=== PATIENT | male | born 1985 | race Caucasian/White ===

== ENCOUNTER 2020-10-05 08:00 | Outpatient (CLI) | payer BC ==
--- NOTE | 2020-10-06 10:51 | XRAY Report ---
PROCEDURE: Finger(s) RT INDICATIONS: CONTUSION OF RIGHT LITTLE FINGER TECHNIQUE: AP hand, 3 views of the fifth finger(s) acquired. COMPARISON: None FINDINGS: Bones: There is a mildly displaced fracture extending to the articular surface at the proximal aspect of the fifth distal phalanx.. No suspicious bony lesions. Soft tissues: No suspicious soft tissue calcifications. IMPRESSION: Intra-articular fracture at the base of the fifth distal phalanx. Reviewed by: Kaela Browning MD on 10/06/2020 10:50 AM PDT Approved by: Kaela Browning MD on 10/06/2020 10:50 AM PDT Station ID: [id number]
== END 2020-10-05 23:59 | disposition home or self-care (01) ==
LOC: DI.S 08:00
PROVIDERS: ATTEND Physician Assistant Medical
DX: S60.051A Contusion of right little finger without damage to nail, initial encounter (principal); S62.666A Nondisplaced fracture of distal phalanx of right little finger, initial encounter for closed fracture

== ENCOUNTER 2020-10-22 18:26 | Outpatient (CLI) | payer BC ==
--- NOTE | 2020-10-22 15:18 | XRAY Report ---
PROCEDURE: Finger(s) RT INDICATIONS: DISPLACED FX OF DISTAL PHALANX OF R 5TH DIGIT TECHNIQUE: PA view of the hand and 2 views of the small finger obtained. COMPARISON: Finger radiographs 10/05/2020. FINDINGS: Bones: Oblique intra-articular fracture at the dorsal base of the fifth distal phalanx is seen with m inimally increased 1 to 2 mm dorsal displacement when compared to the prior radiographs. No suspiciou s bony lesions. Soft tissues: No suspicious soft tissue calcifications. IMPRESSION: Mildly increased 1-2 mm dorsal displacement of the intra-articular fracture fragment at the dorsal ba se of the fifth distal phalanx. Reviewed by: Gaurang Rankin MD on 10/22/2020 3:16 PM PDT Approved by: Gaurang Rankin MD on 10/22/2020 3:16 PM PDT Station ID: [id number]
== END 2020-10-22 18:27 | disposition home or self-care (01) ==
LOC: DI.N 18:26
PROVIDERS: ATTEND Physician Assistant
DX: S62.636A Displaced fracture of distal phalanx of right little finger, initial encounter for closed fracture (principal)